=== PATIENT | female | born 1955 ===

== ENCOUNTER 2018-08-13 08:08 | Outpatient (CLI) | payer OTHER ==
[~2018-08-13] VITALS: Ht 152.4 cm; Wt 72.6 kg
== END 2018-08-13 08:20 | disposition home or self-care (01) ==
LOC: OFIC 805 08:08
DX: H93.13 Tinnitus, bilateral (principal); H61.23 Impacted cerumen, bilateral; M26.609 Unspecified temporomandibular joint disorder, unspecified side

== ENCOUNTER 2018-10-01 09:19 | Outpatient (CLI) | payer OTHER ==
[~2018-10-01] VITALS: Ht 152.4 cm; Wt 72.6 kg
== END 2018-10-01 09:40 | disposition home or self-care (01) ==
LOC: OFIC 805 09:19
DX: H93.13 Tinnitus, bilateral (principal); H61.23 Impacted cerumen, bilateral; M26.69 Other specified disorders of temporomandibular joint

== ENCOUNTER 2021-06-24 08:25 | Outpatient (CLI) | payer OTHER | END 2021-06-24 08:35 | disposition home or self-care (01) | LOC: MAMO-SONO 08:25 | PROVIDERS: ATTEND Internal Medicine Hematology & Oncology | DX: N64.59 Other signs and symptoms in breast (principal); Z12.31 Encounter for screening mammogram for malignant neoplasm of breast; N28.89 Other specified disorders of kidney and ureter; R10.84 Generalized abdominal pain; D70.8 Other neutropenia; D51.3 Other dietary vitamin B12 deficiency anemia; D51.8 Other vitamin B12 deficiency anemias; M81.0 Age-related osteoporosis without current pathological fracture; N60.21 Fibroadenosis of right breast; I10 Essential (primary) hypertension; E78.49 Other hyperlipidemia; R94.5 Abnormal results of liver function studies; E55.9 Vitamin D deficiency, unspecified; K75.89 Other specified inflammatory liver diseases ==